=== PATIENT | male | born 1965 | race Two or more races ===

== ENCOUNTER 2019-03-17 07:44 | Inpatient (IN) | payer OTHER ==
[~2019-03-17] VITALS: Ht 193 cm; Wt 99.8 kg
[2019-03-17] MEDS ORDERED: ONDANSETRON HCL/PF 4 MG/2 ML VIAL IV ONE (08:00)
[2019-03-17] MEDS ORDERED: IV NS 0.9% 1,000 ML BAG IV ONE ×2 (08:00→10:00)
--- NOTE | 2019-03-17 08:00 | NUR ---
MARCELA, FROM HOME, FOUND OUTSIDE HIS HOUSE, PT ADMITS ON DRINKING LAST NIGHT AND THIS MORNING A BOTTLE OF LIQUOR, +SI/-HI W/ NO PLAN. KEPT COMFORTABLE, WILL CONTINUE TO MONITOR ACCORDINGLY. SITTER AT BEDSIDE FOR CONSTANT MONITORING.
[2019-03-17] MEDS ORDERED: ONDANSETRON HCL/PF 4 MG/2 ML VIAL ONE (08:06)
--- NOTE | 2019-03-17 08:12 | NUR ---
security at bedside and wanded the patient.
[2019-03-17 08:39] LABS: ALANINE AMINOTRANSFERASE 44 U/L (12-78); ALBUMIN 4.1 g/dL (3.4-5.0); ALCOHOL, BLOOD < 3 mg/dL (0-0); ALKALINE PHOSPHATASE 119 U/L (46-116); ASPARTATE AMINOTRANSFERASE 43 U/L (15-37); BILIRUBIN,DIRECT 0.1 mg/dL (0.0-0.2); BILIRUBIN,TOTAL 0.4 mg/dL (0.2-1.0); CALCIUM, SERUM 9.8 mg/dL (8.5-10.1); CARBON DIOXIDE 19 mmol/L (21-32); CHLORIDE 103 mmol/L (98-107); CREATININE 1.3 mg/dL (0.6-1.3); GLUCOSE 160 mg/dL (74-106); POTASSIUM 3.6 mmol/L (3.5-5.1); SODIUM SERUM 143 mmol/L (136-145); TOTAL PROTEIN, SERUM 8.4 g/dL (6.4-8.2); UREA NITROGEN, BLOOD 10 mg/dL (7-18)
[2019-03-17 08:41] LABS: SALICYLATE 1.8 mg/dL (2.8-20.0)
[2019-03-17 08:52] LABS: BASOPHILS % (AUTO) 0.1 % (0.0-2.0); HEMATOCRIT 45 % (39-51); LYMPHOCYTES # (AUTO) 1.1 /CMM (0.8-4.8); LYMPHOCYTES % (AUTO) 7.1 % (20.0-44.0); MEAN CORPUSCULAR HGB CONC 34 g/dl (31.0-36.0); MEAN CORPUSCULAR VOLUME 88 fL (80-96); MONOCYTES # (AUTO) 0.7 /CMM (0.1-1.30); MONOCYTES % (AUTO) 4.1 % (2.0-12.0); NEUTROPHILS # (AUTO) 14.3 /CMM (1.8-8.9); NEUTROPHILS % (AUTO) 88.7 % (43.0-81.0); PLATELET COUNT (AUTO) 412 /CMM (150-450); RED BLOOD CELL COUNT(AUTO) 5.12 MIL/uL (4.5-6.0); WHITE BLOOD COUNT (AUTO) 16.2 K/uL (4.3-11.0)
--- NOTE | 2019-03-17 09:03 | NUR ---
urine collected and sent to lab
[2019-03-17 09:04] LABS: ACETAMINOPHEN 0 ug/ml (10-30)
[2019-03-17 09:12] LABS: APPEARANCE,URINE Clear (CLEAR); BILIRUBIN,URINE Negative (NEGATIVE); BLOOD, URINE Moderate Ery/uL (NEGATIVE); COLOR,URINE Yellow (YELLOW); KETONES,URINE Trace (NEGATIVE); LEUKOCYTE ESTERASE ,URINE Small (NEGATIVE); NITRITE, URINE Negative (NEGATIVE); PROTEIN,URINE 100 mg/dl (NEGATIVE); UGLUCOSE 500 MG/DL mg/dL (NEGATIVE); UROBILINOGEN,URINE 0.2 EU/dL (0.2)
[2019-03-17 09:14] LABS: BACTERIA,URINE None seen /HPF (None Seen); SQUAMOUS EPITHELIAL CELL,UR Few /HPF (None Seen)
--- NOTE | 2019-03-17 11:42 | NUR ---
lapd at bedside and talking to the patient. Per [employer] ex-bf is coming to pick him up.
--- NOTE | 2019-03-17 12:19 | NUR ---
lapd: Yevgeniy [id number] [phone]
--- NOTE | 2019-03-17 12:21 | NUR ---
CALLED DISCHARGE COORDINATOR PAWN BROKER.
[2019-03-17] MEDS ORDERED: LORAZEPAM INJ 2 MG/ML VIAL IM ONE (12:30)
--- NOTE | 2019-03-17 12:42 | NUR ---
tammy APPLIED PSYCHOLOGY CHAIR on site for eval
[2019-03-17] MEDS ORDERED: LORAZEPAM INJ 2 MG/ML VIAL ONE (12:57)
--- NOTE | 2019-03-17 14:12 | NUR ---
NURSING SUP GAVE GPS BED 215A.
[2019-03-17] MEDS ORDERED: LORA-258 PO (14:42)
[2019-03-17] MEDS ORDERED: AMLO5TAB4 PO (14:42)
[2019-03-17] MEDS ORDERED: ARIP5TAB59 PO (14:42)
[2019-03-17] MEDS ORDERED: HYDR-4385 PO (14:42)
[2019-03-17] MEDS ORDERED: LISI1TAB28 PO (14:42)
[2019-03-17] MEDS ORDERED: ABAC1TAB15 PO (14:42)
[2019-03-17] MEDS ORDERED: SIMV-46 PO (14:42)
[2019-03-17] MEDS ORDERED: IBUP-1957 PO (14:42)
[2019-03-17] MEDS ORDERED: LAMO150T6 PO (14:42)
[2019-03-17] MEDS ORDERED: DULO60CA45 PO (14:42)
[2019-03-17] MEDS ORDERED: METH36TA PO (14:42)
--- NOTE | 2019-03-17 15:10 | NUR ---
REPORT GIVEN TO SHAVON NAVAS FOR ITA.
--- NOTE | 2019-03-17 15:45 | NUR ---
NURSING ADMISSION NOTE: PT WAS ADMITTED TODAY AT 1545 FROM [facility] ER ON 5150 HOLD FOR DTS. PER HOLD, "RADIOCALL TO ARASH'S APARTMENT FOR WELFARE CHECK. SPOKE TO ARASH WHO STATED HE HAS BEEN SUFFERING FROM DEPRESSION AND LIFE ISSUES. HE HAS THOUGHTS OF HURTING HIMSELF AND TOLD EX-PARTNER (CRISTAL TREJO) THAT HE HOPED THE GLASS [place] WOULD BREAK AND HE WOULD FALL." PT WAS BROUGHT TO THE UNIT VIA GURNEY FROM ER. PT IS A&OX4, CALM, COOPERATIVE, PLEASANT, FLAT, SAD AFFECT, DEPRESSED MOOD, DENIES SI/HI/AVH AT THIS TIME. PT STATES "I'VE BEEN DEP Addendum: 03/17/19 at 1909 by ANKIT PARK RN DEPRESSED FOR A WHILE NOW AND HAVE BEEN HAVING SUICIDAL THOUGHTS BUT I DID NOT HAVE A PLAN." ADMISSION ORDERS WERE GIVEN BY DR. MERRILL AND DR. WOOD HAS BEEN NOTIFIED OF ADMISSION WELL. MED RECON HAS BEEN DONE BY DR. WOOD. PT WAS COOPERATIVE WITH ADMISSION PROCESS AND HAS SIGNED ALL PAPERWORK. SKIN INTACT. VS: 163/111, 107, 20, 96%RA, 98.7, 0/10 PAIN. ALL NEEDS ATTENDED AND ANTICIPATED. WILL CONTINUE TO MONITOR Q15 MINS FOR SAFETY AND BEHAVIOR.
--- NOTE | 2019-03-17 15:56 | NUR ---
wheeled patient via gurney accompanied by EMT in no distress.
[2019-03-17] MEDS ORDERED: Medication Not On Formulary EA (Lamotrigine 150 MG) PO SCH (17:00)
[2019-03-17] MEDS ORDERED: ACETAMINOPHEN 325 MG TABLET PO PRN (17:30)
[2019-03-17] MEDS ORDERED: MAG HYDROX/AL HYDROX/SIMETH 30 ML UDC PO PRN (17:30)
[2019-03-17] MEDS ORDERED: HYDROCODONE/APAP 5/325MG 1 EACH TABLET PO PRN (17:30)
[2019-03-17] MEDS ORDERED: BLOOD SUGAR DIAGNOSTIC 1 EACH STRIP IN ONE (17:30)
[2019-03-17] MEDS ORDERED: LORAZEPAM 0.5 MG TABLET PO PRN (17:30)
[2019-03-17] MEDS ORDERED: IBUPROFEN 400 MG TABLET PO PRN (17:30)
[2019-03-17] MEDS ORDERED: MAGNESIUM HYDROXIDE 30 ML UDC PO PRN (17:30)
[2019-03-17 20:58] VITALS: BP 160/108
[2019-03-17] MEDS: TRAZODONE 50 MG TABLET PO SCH (21:32)
[2019-03-17] MEDS: SULFAMETH/TRIMETH 800/160 MG 1 UDTAB TABLET PO SCH (21:32)
[2019-03-17] MEDS: TEMAZEPAM 7.5 MG CAPSULE PO PRN (21:33)
[2019-03-18 07:39] LABS: BASOPHILS % (AUTO) 0.1 % (0.0-2.0); EOSINOPHILS % (AUTO) 0.8 % (0.0-6.0); HEMATOCRIT 36 % (39-51); HEMOGLOBIN 12.2 g/dL (13.5-17.5); LYMPHOCYTES # (AUTO) 2.6 /CMM (0.8-4.8); LYMPHOCYTES % (AUTO) 31.5 % (20.0-44.0); MEAN CORPUSCULAR HGB CONC 34 g/dl (31.0-36.0); MEAN CORPUSCULAR VOLUME 87 fL (80-96); MONOCYTES # (AUTO) 0.6 /CMM (0.1-1.30); MONOCYTES % (AUTO) 7.9 % (2.0-12.0); NEUTROPHILS # (AUTO) 4.9 /CMM (1.8-8.9); NEUTROPHILS % (AUTO) 59.7 % (43.0-81.0); PLATELET COUNT (AUTO) 299 /CMM (150-450); RED BLOOD CELL COUNT(AUTO) 4.17 MIL/uL (4.5-6.0); WHITE BLOOD COUNT (AUTO) 8.1 K/uL (4.3-11.0)
[2019-03-18 07:40] LABS: ALBUMIN 3.2 g/dL (3.4-5.0); BILIRUBIN,TOTAL 0.4 mg/dL (0.2-1.0); CALCIUM, SERUM 8.7 mg/dL (8.5-10.1); PHOSPHORUS 3.3 mg/dL (2.5-4.9); POTASSIUM 3.2 mmol/L (3.5-5.1); TOTAL PROTEIN, SERUM 6.6 g/dL (6.4-8.2)
[2019-03-18 08:00] VITALS: BP 127/73
[2019-03-18] MEDS: THIAMINE HCL 100 MG TABLET PO SCH (08:47)
[2019-03-18] MEDS: FOLIC ACID 1 MG TABLET PO SCH (08:47)
[2019-03-18] MEDS: LISINOPRIL (20MG) 20 MG TABLET PO SCH (08:47)
[2019-03-18] MEDS: HYDROCHLOROTHIAZIDE 25 MG TABLET PO SCH (08:47)
[2019-03-18] MEDS: LITHIUM CARBONATE (300 MG CAP) 300 MG CAPSULE PO SCH ×3 (08:47→16:38)
[2019-03-18] MEDS: SIMVASTATIN 20 MG TABLET PO SCH (08:48)
[2019-03-18] MEDS: SULFAMETH/TRIMETH 800/160 MG 1 UDTAB TABLET PO SCH ×2 (08:48→21:42)
[2019-03-18] MEDS: AMLODIPINE BESYLATE 5 MG TABLET PO SCH (08:48)
[2019-03-18] MEDS ORDERED: Medication Not On Formulary EA (Duloxetine Hcl (Cymbalta) 60 MG) PO SCH (09:00)
[2019-03-18] MEDS ORDERED: TRIUMEQ PO SCH (09:00)
[2019-03-18] MEDS ORDERED: METHYLPHENIDATE HCL 36 MG PO SCH (09:00)
[2019-03-18] MEDS: CHLORDIAZEPOXIDE HCL 5 MG CAPSULE PO SCH ×3 (09:40→16:38)
[2019-03-18] MEDS ORDERED: POTASSIUM CHLORIDE 20 MEQ TAB.PRT.SR PO SCH (10:00)
[2019-03-18] MEDS ORDERED: POTASSIUM CHLORIDE 20 MEQ TAB.PRT.SR PO ONE (10:30)
--- NOTE | 2019-03-18 13:13 | NUR ---
DR WOOD MADE AWARE OF THE PATIENT'S MOST RECENT LAB VALUES.
--- NOTE | 2019-03-18 14:22 | NUR ---
INITIAL DISCHARGE PLAN: Patient wishes to return home [address] [facility] [address].Paty W will help form a safe and proper discharge in collaboration with .
--- NOTE | 2019-03-18 14:24 | NUR ---
UR NOTE: AUTH FOR 6DAYS, With review due 03/23, AUTH #:[id number]. OBTAINED FROM [facility] NUTRITIONIST [phone].
--- NOTE | 2019-03-18 15:01 | NUR ---
FAMILY CONTACT: TERESA contacted pts Pete [phone] and left a voicemail for callback.
[2019-03-18 16:00] VITALS: BP 107/68
--- NOTE | 2019-03-18 19:08 | NUR ---
RN NOTE: PATIENT C/O HEARTBURN. PRN MAALOX GIVEN
--- NOTE | 2019-03-18 19:30 | NUR ---
GPS RN NOTES RECEIVED LAYING COMFORTABLY ON BED,A/O X4,ABLE TO MAKE NEEDS KNOWN,AMBULATE WITH ASSIST.DENIES SUICIDAL IDEATION,MED COMPLIANT.WILL CONTINUE TO MONITOR BEHAVIOR AND MANAGE ACCORDINGLY.
[2019-03-18 20:00] VITALS: BP 106/58
[2019-03-18] MEDS: TRIUMEQ PO SCH (20:58)
[2019-03-18 21:37] VITALS: BP 106/58
[2019-03-18] MEDS: TRAZODONE 50 MG TABLET PO SCH (21:42)
[2019-03-19 08:00] VITALS: BP 116/79
[2019-03-19] MEDS: LITHIUM CARBONATE (300 MG CAP) 300 MG CAPSULE PO SCH ×3 (09:00→17:03)
[2019-03-19] MEDS ORDERED: TRIUMEQ PO SCH ×2 (09:00→22:00)
[2019-03-19] MEDS: TRIUMEQ PO SCH (09:00)
[2019-03-19] MEDS: SULFAMETH/TRIMETH 800/160 MG 1 UDTAB TABLET PO SCH ×2 (09:01→21:09)
[2019-03-19] MEDS: THIAMINE HCL 100 MG TABLET PO SCH (09:01)
[2019-03-19] MEDS: SIMVASTATIN 20 MG TABLET PO SCH (09:01)
[2019-03-19] MEDS: FOLIC ACID 1 MG TABLET PO SCH (09:01)
[2019-03-19] MEDS: CHLORDIAZEPOXIDE HCL 5 MG CAPSULE PO SCH ×3 (09:01→17:03)
[2019-03-19] MEDS: AMLODIPINE BESYLATE 5 MG TABLET PO SCH (09:02)
[2019-03-19] MEDS: LISINOPRIL (20MG) 20 MG TABLET PO SCH (09:02)
[2019-03-19] MEDS: HYDROCHLOROTHIAZIDE 25 MG TABLET PO SCH (09:02)
[2019-03-19 16:00] VITALS: BP 129/70
[2019-03-19 20:37] VITALS: BP 150/86
[2019-03-19] MEDS: TRAZODONE 50 MG TABLET PO SCH (21:10)
[2019-03-20] MEDS: TEMAZEPAM 7.5 MG CAPSULE PO PRN (00:04)
[2019-03-20 08:00] VITALS: BP 109/72
[2019-03-20] MEDS: AMLODIPINE BESYLATE 5 MG TABLET PO SCH (09:03)
[2019-03-20] MEDS: SULFAMETH/TRIMETH 800/160 MG 1 UDTAB TABLET PO SCH (09:03)
[2019-03-20] MEDS: CHLORDIAZEPOXIDE HCL 5 MG CAPSULE PO SCH (09:03)
[2019-03-20 09:04] VITALS: BP 109/72
[2019-03-20] MEDS: HYDROCHLOROTHIAZIDE 25 MG TABLET PO SCH (09:04)
[2019-03-20] MEDS: LITHIUM CARBONATE (300 MG CAP) 300 MG CAPSULE PO SCH (09:04)
[2019-03-20] MEDS: SIMVASTATIN 20 MG TABLET PO SCH (09:04)
[2019-03-20] MEDS: FOLIC ACID 1 MG TABLET PO SCH (09:04)
[2019-03-20] MEDS: THIAMINE HCL 100 MG TABLET PO SCH (09:04)
[2019-03-20] MEDS: LISINOPRIL (20MG) 20 MG TABLET PO SCH (09:04)
--- NOTE | 2019-03-20 11:31 | NUR ---
53 year old male discharged to 's home in stable condition. Compliant with medications, cooperative with treatment plans. Patient denies SI/HI and VAH. Patient instructed to go to the closest ER if developing SI/HI. Behavior improved, less depressed, psychiatric treatment plans met. Medical treatment plans deferred for continual monitoring. Patient educated on after care and copy provided. All personal belongings returned and belongings list signed. Medications reconciled with Dr. Storm and Dr. Mercado. Prescriptions given to patient. Patient signed discharge paperwork. Skin checked and intact on discharge. Patient left unit at 1120 via private car accompanied by , Preston.
--- NOTE | 2019-04-01 13:54 | NUR ---
15 DAY SUBSTANCE ABUSE FOLLOW UP: Unable to follow up due to contact number no longer valid.
== END 2019-03-20 11:20 | disposition home or self-care (01) | DRG 885 ==
LOC: ER 07:44 → GPS 14:32
PROVIDERS: ADMIT Psychiatry & Neurology Psychiatry; ATTEND Internal Medicine
DX: F31.9 Bipolar disorder, unspecified (principal); R45.851 Suicidal ideations; N39.0 Urinary tract infection, site not specified; J98.11 Atelectasis; F15.90 Other stimulant use, unspecified, uncomplicated; E78.5 Hyperlipidemia, unspecified; F41.9 Anxiety disorder, unspecified; I10 Essential (primary) hypertension; F10.10 Alcohol abuse, uncomplicated; F98.8 Other specified behavioral and emotional disorders with onset usually occurring in childhood and adolescence; Z87.891 Personal history of nicotine dependence
CPT/HCPCS: 36415; 70450-TC; 71045-TC; 80048-TC; 80053-TC; 80061-TC; 80076-TC; 80305; 81000-TC; 82962-TC; 83735-TC; 84100-TC; 84484-TC; 85025-TC; 85730-TC; 87081-TC; G0480; J2060; J2405; J7030

== ENCOUNTER 2019-09-02 15:55 | Inpatient (IN) | payer OTHER ==
[~2019-09-02] VITALS: Ht 193 cm; Wt 94.3 kg
[~2019-09-02 15:55] MED LIST: ABAC1TAB15 PO; AMLO5TAB4 PO; ARIP5TAB59 PO; DULO60CA45 PO; HYDR-4385 PO; IBUP-1957 PO; LAMO150T6 PO; LISI1TAB28 PO; LORA-258 PO; METH36TA PO; SIMV-46 PO
--- NOTE | 2019-09-02 15:58 | NUR ---
PT MALIKA FROM HOME TO ER BED 14. PER EMS REPORT, FAMILY CALLED 911 CONCERNED ABOUT PATIENT POSSIBLE OVERDOSING ON HIS PSYCH MEDS. PT PLACED ON MONITOR. VSS. SITTER AT BEDSIDE. AWAITING MD CURRAN.
--- NOTE | 2019-09-02 16:24 | NUR ---
DR CALIX AT BEDSIDE FOR EVAL.
--- NOTE | 2019-09-02 16:42 | NUR ---
CYTOPATHOLOGIST AT BEDSIDE FOR BLOOD DRAW.
[2019-09-02 16:47] LABS: BASOPHILS % (AUTO) 0.2 % (0.0-2.0); EOSINOPHILS % (AUTO) 0.6 % (0.0-6.0); HEMATOCRIT 44 % (39-51); LYMPHOCYTES # (AUTO) 1.6 /CMM (0.8-4.8); LYMPHOCYTES % (AUTO) 16.6 % (20.0-44.0); MEAN CORPUSCULAR HGB CONC 34 g/dl (31.0-36.0); MEAN CORPUSCULAR VOLUME 90 fL (80-96); MONOCYTES # (AUTO) 0.5 /CMM (0.1-1.30); NEUTROPHILS # (AUTO) 7.5 /CMM (1.8-8.9); NEUTROPHILS % (AUTO) 77.6 % (43.0-81.0); PLATELET COUNT (AUTO) 351 /CMM (150-450); RED BLOOD CELL COUNT(AUTO) 4.92 MIL/uL (4.5-6.0); WHITE BLOOD COUNT (AUTO) 9.7 K/uL (4.3-11.0)
[2019-09-02 16:55] LABS: CALCIUM, SERUM 9.3 mg/dL (8.5-10.1); CARBON DIOXIDE 19 mmol/L (21-32); CHLORIDE 103 mmol/L (98-107); CREATININE 1.1 mg/dL (0.6-1.3); GLUCOSE 184 mg/dL (74-106); POTASSIUM 3.3 mmol/L (3.5-5.1); SODIUM SERUM 139 mmol/L (136-145); UREA NITROGEN, BLOOD 8 mg/dL (7-18)
[2019-09-02 17:08] LABS: ALANINE AMINOTRANSFERASE 27 U/L (12-78); ALKALINE PHOSPHATASE 107 U/L (46-116); ASPARTATE AMINOTRANSFERASE 21 U/L (15-37); BILIRUBIN,DIRECT 0.1 mg/dL (0.0-0.2); BILIRUBIN,TOTAL 0.3 mg/dL (0.2-1.0)
[2019-09-02 17:14] LABS: SALICYLATE 1.4 mg/dL (2.8-20.0)
[2019-09-02 17:15] LABS: ACETAMINOPHEN 0 ug/ml (10-30); ALCOHOL, BLOOD < 3 mg/dL (0-0)
[2019-09-02] MEDS ORDERED: POTASSIUM CHLORIDE 20 MEQ TAB.PRT.SR PO ONE ×2 (18:30→18:38)
--- NOTE | 2019-09-02 19:09 | NUR ---
RECEIVED REPORT FROM AM SHIFT RN JANICE. PT ASLEEP, NO ACUTE DISTRESS NOTED, RESP EVEN AND UNLABORED. CALL LIGHT WITHIN REACH. WILL CONTINUE TO MONITOR PT CLOSELY. 1:1 SITTER REMAINS AT BEDSIDE.
[2019-09-02 19:19] LABS: APPEARANCE,URINE Clear (CLEAR); BILIRUBIN,URINE Negative (NEGATIVE); BLOOD, URINE Negative Ery/uL (NEGATIVE); COLOR,URINE Yellow (YELLOW); KETONES,URINE Negative (NEGATIVE); LEUKOCYTE ESTERASE ,URINE Small (NEGATIVE); NITRITE, URINE Negative (NEGATIVE); PH,URINE 5.5 (5.0-8.0); PROTEIN,URINE 30 mg/dl (NEGATIVE); UGLUCOSE Negative (NEGATIVE); UROBILINOGEN,URINE 0.2 EU/dL (0.2)
[2019-09-02 19:29] LABS: BACTERIA,URINE Few /HPF (None Seen); RBC,URINE 0-2 /HPF (0-2); SQUAMOUS EPITHELIAL CELL,UR Few /HPF (None Seen)
--- NOTE | 2019-09-02 22:59 | NUR ---
PER DR CALIX PT MED CLEARED TO BE SEEN BY CRISIS CLIN
--- NOTE | 2019-09-02 23:58 | NUR ---
called psych clinician tammy serrano, 1 hour eta
--- NOTE | 2019-09-03 00:46 | NUR ---
BASIA HALE SAMPLE BOX MAKER AT BEDSIDE TO BINA PT. PT CALM AND COOPERATIVE AT THIS TIME.
--- NOTE | 2019-09-03 01:00 | NUR ---
BASIA HALE LCSW PLACED PT ON 5150 HOLD.
--- NOTE | 2019-09-03 02:35 | NUR ---
PT ASLEEP, NO ACUTE DISTRESS NOTED, RESP EVEN AND UNLABORED. CALL LIGHT WITHIN REACH. WILL CONTINUE TO MONITOR PT CLOSELY. 1:1 SITTER REMAINS AT BEDSIDE.
--- NOTE | 2019-09-03 04:06 | NUR ---
PT REQUESTING TO SPEAK TO ER MDAND REQUESTING PSYCH MEDS. ER MD SPOKE TO PT NO ORDERS RECEIVED.
--- NOTE | 2019-09-03 04:21 | NUR ---
PT RESTING COMFORTABLY IN BED. VSS. NO ACUTE DISTRESS NOTED. SITTER AT BEDSIDE FOR SAFETY
--- NOTE | 2019-09-03 06:11 | NUR ---
PT ASLEEP, NO ACUTE DISTRESS NOTED, RESP EVEN AND UNLABORED. CALL LIGHT WITHIN REACH. WILL CONTINUE TO MONITOR PT CLOSELY. 1:1 SITTER REMAINS AT BEDSIDE.
--- NOTE | 2019-09-03 07:21 | NUR ---
RECEIVED REPORT FROM SALMA NAVAS FOR ITA, PATIENT IN BED ASLEEP, EASILY AROUSABLE BY VOICE, HOOKED TO MONITOR, VSS, WILL CONTINUE TO MONITOR ACCORDINGLY.
--- NOTE | 2019-09-03 08:27 | NUR ---
ROOM GIVEN 215-A
--- NOTE | 2019-09-03 08:36 | NUR ---
REPORT GIVEN TO BRIELLE NAVAS OF GPS UNIT
--- NOTE | 2019-09-03 09:20 | NUR ---
GPS RN NOTE: ADMISSION 54 YEAR OLD MALE PATIENT ARRIVED ON UNIT AT 0915. PATIENT WAS ADMITTED FROM [facility] ER PREVIOUSLY FROM HOME. PATIENT WAS ADMITTED ON A 5150 FOR DANGER TO SELF. ACCORDING TO THE HOLD PATIENT'S FOUND PT UNCONSCIOUS AND HIS HOUSE A MESS WITH BROKEN DISHES AND GLASS EVERYWHERE. PATIENT TOOK 30-35 20MG CELEXA. UPON FACE TO FACE EVALUATION PATIENT ADMITS TO SUICIDE ATTEMPT WELL BECOMING ANGRY AND IMPULSIVE AND TRASHING THE HOUSE. PATIENT DENIED HAVING A PLAN AND STATED THE ATTEMPT WAS IMPULSIVE. PATIENT IS DEPRESSED WITH CONGRUENT AFFECT BUT DENIES SI AT THIS TIME. PATIENT'S RIGHTS HANDBOOK AND GUIDE TO PRESCRIPTIONS GIVEN. PATIENT SIGNED ALL ADMIT PAPERWORK. PATIENT DID NOT BRING ANY CONTRABAND WITH HIM. PATIENT SKIN IS INTACT. BREATHING IS EVEN AND UNLABORED WITH EQUAL RISE AND FALL OF CHEST. NO SIGNS OF DISTRESS NOTED AND PATIENT DENIES ANY PAIN. PATIENT IS AMBULATORY AND CONTINENT. SAFETY PRECAUTIONS IN PLACE: BED IN LOCKED AND LOW POSITION WITH 2 SIDE RAILS UP FOR SAFETY. BED ALARM ON. WILL CONTINUE TO MONITOR Q15 FOR MOOD, SAFETY AND BEHAVIOR
[2019-09-03] MEDS ORDERED: MAGNESIUM HYDROXIDE 30 ML UDC PO PRN (10:30)
[2019-09-03] MEDS ORDERED: BLOOD SUGAR DIAGNOSTIC 1 EACH STRIP IN ONE (10:30)
[2019-09-03] MEDS ORDERED: MAG HYDROX/AL HYDROX/SIMETH 30 ML UDC PO PRN (10:30)
[2019-09-03] MEDS ORDERED: ACETAMINOPHEN 325 MG TABLET PO PRN (10:30)
[2019-09-03] MEDS ORDERED: LamoTRIgine 100 MG TABLET PO SCH (13:00)
[2019-09-03 16:00] VITALS: BP 127/84
--- NOTE | 2019-09-03 16:04 | NUR ---
GPS RN NOTE: SHEFALI CONTACTED FATHER, ARASH. FATHER SAID EITHER HE OR RUDY () WILL DROP OFF MEDICATIONS THIS EVENING
[2019-09-03] MEDS: LORAZEPAM 0.5 MG TABLET PO PRN (18:18)
--- NOTE | 2019-09-03 18:18 | NUR ---
GPS RN NOTE: ANXIETY PATIENT APPROACHED NURSING STATION ASKING FOR "SOMETHING FOR ANXIETY". ATIVAN ADMINISTERED ORDERED. WILL CONTINUE TO MONITOR
[2019-09-03] MEDS: LAMIVUDI PO SCH (19:00)
[2019-09-03] MEDS: ABACAVIR PO SCH (19:00)
[2019-09-03] MEDS: DOLUTEGRAVIR PO SCH (19:00)
[2019-09-03 21:04] VITALS: BP 112/68
[2019-09-03] MEDS: TEMAZEPAM 7.5 MG CAPSULE PO PRN (22:33)
--- NOTE | 2019-09-03 22:33 | NUR ---
GPS-RN NOTE: INSOMNIA PATIENT C/O INABILITY TO SLEEP. ADMINISTERED RESTORIL 15MG PO ORDERED PER PT'S REQUEST. WILL CONTINUE TO MONITOR FOR PATIENT'S SAFETY.
[2019-09-04 06:45] LABS: CHOLESTEROL 198 mg/dL (<200); HDL CHOLESTEROL 59 mg/dL (40-60); LDL 131 mg/dL (0-99); TRIGLYCERIDES 87 mg/dL (30-150)
[2019-09-04 06:54] LABS: ALBUMIN 3.6 g/dL (3.4-5.0); BILIRUBIN,TOTAL 0.4 mg/dL (0.2-1.0); CALCIUM, SERUM 8.9 mg/dL (8.5-10.1); CREATININE 1.1 mg/dL (0.6-1.3); POTASSIUM 3.7 mmol/L (3.5-5.1); TOTAL PROTEIN, SERUM 7.4 g/dL (6.4-8.2)
[2019-09-04 08:00] VITALS: BP 131/97
[2019-09-04] MEDS: LamoTRIgine 100 MG TABLET PO SCH (08:52)
[2019-09-04] MEDS: SIMVASTATIN 20 MG TABLET PO SCH (08:53)
[2019-09-04] MEDS: DULOXETINE HCL 30 MG CAPSULE.DR PO SCH (08:53)
[2019-09-04] MEDS: HYDROCHLOROTHIAZIDE 25 MG TABLET PO SCH (08:54)
[2019-09-04] MEDS: AMLODIPINE BESYLATE 5 MG TABLET PO SCH (08:55)
[2019-09-04] MEDS: LISINOPRIL (20MG) 20 MG TABLET PO SCH (08:55)
[2019-09-04] MEDS ORDERED: METHYLPHENIDATE HCL 36 MG PO SCH (09:00)
[2019-09-04] MEDS ORDERED: ARIPIPRAZOLE 5 MG TABLET PO SCH (09:00)
[2019-09-04] MEDS ORDERED: DULOXETINE HCL 30 MG CAPSULE.DR PO SCH (09:00)
--- NOTE | 2019-09-04 10:25 | NUR ---
Substance Abuse Intervention: TERESA conducted a substance abuse intervention with the pt due to the pt overdosing on his prescription medications upon admission. Pt also has a history of drug and alcohol abuse.
--- NOTE | 2019-09-04 10:32 | NUR ---
CSSRS-Initial Intervention: SW conducted a suicide risk assessment with the pt due to his suicide attempt upon admission. Pt appeared to be minimizing and stated that he has not had ideation for months.
--- NOTE | 2019-09-04 10:35 | NUR ---
Family Contact: SW called the pts , Pete ([phone]), and left a voicemail message stating that the SW would like to discuss the pts treatment and discharge plan.
--- NOTE | 2019-09-04 10:43 | NUR ---
Initial Discharge Plan: Pt currently resides in his apartment alone located at [address] [place] [address]; ([phone]). Per pt, he would like to return to his home or go to a treatment center. SW will work with the pt and the MD regarding appropriate discharge planning. SW will form a safe and proper discharge.
--- NOTE | 2019-09-04 10:48 | NUR ---
[facility] Contact: SW called Jacob from [facility] ([phone]), and left a voicemail stating that the SW would like to refer a pt but the pt has questions about what treatment entails currently with COVID 19.
[2019-09-04] MEDS: DOLUTEGRAVIR PO SCH (12:18)
[2019-09-04] MEDS: LAMIVUDI PO SCH (12:18)
[2019-09-04] MEDS: ABACAVIR PO SCH (12:18)
--- NOTE | 2019-09-04 12:59 | NUR ---
Family Contact: Pts , Pete ([phone]), called the SW and stated that he is involved in the pts care but he stated that he is consulting with all of their family members so that he is not the sole person making decisions. SW stated that he will be the sole person of contact and he stated yes. It was discussed that the pt needs inpatient rehabilitation treatment and the SW stated that she would discuss this plan with the pt.
--- NOTE | 2019-09-04 15:32 | NUR ---
Individual Intervention with the pt: Pt stated that he wanted to be discharged to a treatment center in [place] because he has a friend (Mary [phone]) there that is supportive. He provided the SW with the name and number of a treatment center and asked the SW to follow up. Pt states that he is aware that he is in need of treatment and states, "Now is a perfect time. I have always made excuses not to seek treatment because I was working but now no one is working and I need to focus on my life."
--- NOTE | 2019-09-04 15:36 | NUR ---
Treatment Center Contact: TERESA called [facility] and spoke to Yoel ([phone]), instructional technology coordinator, and informed him that the pt is interested. TERESA provided him with the pts history and the current reason for hospitalization. TERESA then redirected the call to the pt so that an assessment can take place.
[2019-09-04 16:00] VITALS: BP 110/75
[2019-09-04 20:56] VITALS: BP 106/70
[2019-09-04] MEDS: TEMAZEPAM 7.5 MG CAPSULE PO PRN (21:54)
--- NOTE | 2019-09-04 21:54 | NUR ---
GPS RN NOTE: INSOMNIA PT. C/O UNABLE TO SLEEP AND REQUESTED SLEEPING PILL. ADMINISTERED RESTORIL 15 MG PO PRN ORDERED. WILL CONTINUE TO MONITOR FOR SAFETY AND BEHAVIOR
[2019-09-05 08:00] VITALS: BP 128/86
[2019-09-05] MEDS: SIMVASTATIN 20 MG TABLET PO SCH (08:22)
[2019-09-05] MEDS: DULOXETINE HCL 30 MG CAPSULE.DR PO SCH (08:22)
[2019-09-05] MEDS: LamoTRIgine 100 MG TABLET PO SCH (08:22)
[2019-09-05] MEDS: HYDROCHLOROTHIAZIDE 25 MG TABLET PO SCH (08:23)
[2019-09-05] MEDS: LISINOPRIL (20MG) 20 MG TABLET PO SCH (08:24)
[2019-09-05] MEDS: AMLODIPINE BESYLATE 5 MG TABLET PO SCH (08:28)
[2019-09-05] MEDS: LAMIVUDI PO SCH (08:32)
[2019-09-05] MEDS: ABACAVIR PO SCH (08:32)
[2019-09-05] MEDS: DOLUTEGRAVIR PO SCH (08:32)
--- NOTE | 2019-09-05 09:00 | NUR ---
RN NOTE- PT SLEEPING, EASILY AROUSED, COMPLIANT WITH RX, NEEDS ATTENDED, ISOLATIVE DENIES SI HI AH VH ENCOURAGING INTERACTION AND ADLS
[2019-09-05 16:00] VITALS: BP 100/61
[2019-09-05 20:00] VITALS: BP 116/72
[2019-09-05] MEDS: TEMAZEPAM 7.5 MG CAPSULE PO PRN (21:26)
--- NOTE | 2019-09-06 07:00 | NUR ---
RN OPENING NOTES RECEIVED PT IN BED AWAKE AT THIS TIME. AO X4. PT ABLE TO VERBALIZE NEEDS. NO SOB NOTED, SO S/S OF ANY ACUTE DISTRESS NOTED. PT DENIES SI HI AV VH. ENCOURAGING ADLS AND INTERACTION.
[2019-09-06 08:00] VITALS: BP 128/93
[2019-09-06] MEDS: SIMVASTATIN 20 MG TABLET PO SCH (08:20)
[2019-09-06] MEDS: AMLODIPINE BESYLATE 5 MG TABLET PO SCH (08:22)
[2019-09-06] MEDS: DULOXETINE HCL 30 MG CAPSULE.DR PO SCH (08:23)
[2019-09-06] MEDS: LISINOPRIL (20MG) 20 MG TABLET PO SCH (08:23)
[2019-09-06] MEDS: HYDROCHLOROTHIAZIDE 25 MG TABLET PO SCH (08:24)
[2019-09-06] MEDS: LamoTRIgine 100 MG TABLET PO SCH (08:24)
[2019-09-06] MEDS: LAMIVUDI PO SCH (08:27)
[2019-09-06] MEDS: DOLUTEGRAVIR PO SCH (08:27)
[2019-09-06] MEDS: ABACAVIR PO SCH (08:27)
[2019-09-06] MEDS: LORAZEPAM 0.5 MG TABLET PO PRN ×3 (09:00→19:44)
[2019-09-06 16:00] VITALS: BP 135/87
[2019-09-06] MEDS: ARIPIPRAZOLE 5 MG TABLET PO SCH (16:03)
[2019-09-06 21:20] VITALS: BP 142/77
[2019-09-06] MEDS: TEMAZEPAM 7.5 MG CAPSULE PO PRN (21:33)
[2019-09-07] MEDS: LORAZEPAM 0.5 MG TABLET PO PRN ×4 (02:11→23:27)
--- NOTE | 2019-09-07 07:26 | NUR ---
RN NOTE: PT C/O INCRASED ANXIETY. REQUESTING ATIVAN PRN. ATIVAN 1MG PO PRN ADMINISTERED.
[2019-09-07 08:00] VITALS: BP 127/88
[2019-09-07] MEDS: SIMVASTATIN 20 MG TABLET PO SCH (08:30)
[2019-09-07] MEDS: DULOXETINE HCL 30 MG CAPSULE.DR PO SCH (08:30)
[2019-09-07] MEDS: ARIPIPRAZOLE 5 MG TABLET PO SCH ×2 (08:31→16:15)
[2019-09-07] MEDS: LISINOPRIL (20MG) 20 MG TABLET PO SCH (08:31)
[2019-09-07] MEDS: HYDROCHLOROTHIAZIDE 25 MG TABLET PO SCH (08:31)
[2019-09-07] MEDS: AMLODIPINE BESYLATE 5 MG TABLET PO SCH (08:32)
[2019-09-07] MEDS: LamoTRIgine 100 MG TABLET PO SCH (08:32)
[2019-09-07] MEDS: LAMIVUDI PO SCH (08:35)
[2019-09-07] MEDS: DOLUTEGRAVIR PO SCH (08:35)
[2019-09-07] MEDS: ABACAVIR PO SCH (08:35)
--- NOTE | 2019-09-07 08:58 | NUR ---
UR NOTE: AUTH# [id number] APPROVED FOR 7 DAYS WITH REVIEW DUE ON 09/09/2019
--- NOTE | 2019-09-07 11:57 | NUR ---
RN NOTE: PT VISIBLY UPSET AND AGITATED. REQUESTING ATIVAN PRN. ATIVAN 1MG PO PRN ADMINISTERED.
--- NOTE | 2019-09-07 13:52 | NUR ---
FAMILY CONTACT: TERESA received a call from pts , Pete ([phone]), who requested updated information. SW informed him that pt is doing better and also informed him that MD started pt on Abilify on this present day. SW also informed him that pts insurance has authorized 7 days and a review is due on Saturday09/09/19. SW stated that if insurance determine pt is no longer meeting criteria for psychiatric hospitalization pt will be discharged on that present day. stated that he needed follow up appointments for pt and SW informed him that she should contact pts insurance to request follow up appointments before pts discharge. then informed SW that he was currently going through a custody gamez and needed SW to tell him if pt was fit to be a parent. TERESA explained that ethically and legally TERESA was unable to answer his question due to this being out of the TERESA's scop of practice. became upset and stated that SW was just trying to "cover her ass" and then hung up the phone. Addendum: 09/07/19 at 1449 by NAZ MOORE After reviewing pts chart, TERESA was made aware the pt has been 2 years from and shares 50/50 custody with pt. Per confidentiality purposes SW will no longer discuss pts treatment with pts . Pt has signed a non-disclosure agreement and stated that he does not want staff communicating with and providing him with information.
--- NOTE | 2019-09-07 14:30 | NUR ---
INDIVIDUAL MEETING: SW met with pt after called SW to seek information and asked about pts ability to be a fit parent. Pt states is using this psychiatric hospitalization as motive to get full custody over their son. Pt states his is manipulative and the main reason why he feels very depressed and has been extremely anxious. Pt requested to sign a non-disclosure of information. RN and SW were both present when pt signed.
--- NOTE | 2019-09-07 14:40 | NUR ---
Individual Counseling: This SW met with pt. at bedside to facilitate therapeutic milieu regarding support systems. However, the pt. was sleeping and not easily rousable by verbal cues. Patient will be invited to participate in future counseling session.
--- NOTE | 2019-09-07 14:52 | NUR ---
NON-DISCLOSURE OF INFORMATION: on this present day pt signed a non-disclosure of information. Pt states he no longer wants hospital staff communicating with as is using pts psychiatric hospitalization as motive to legally get full custody of pts son. is being manipulative and seeking information from staff regarding pts ability to be a fit parent.
[2019-09-07 16:00] VITALS: BP 121/83
[2019-09-07 20:23] VITALS: BP 130/76
[2019-09-07] MEDS: TEMAZEPAM 7.5 MG CAPSULE PO PRN (21:23)
--- NOTE | 2019-09-07 21:24 | NUR ---
GPS-RN NOTE: INSOMNIA PATIENT C/O INABILITY TO SLEEP. ADMINISTERED RESTORIL 15MG PO ORDERED PER PT'S REQUEST. WILL CONTINUE TO MONITOR FOR PATIENT'S SAFETY.
--- NOTE | 2019-09-07 23:28 | NUR ---
GPS-RN NOTE: ANXIETY PATIENT C/O FEELING ANXIOUS AND REQUESTING FOR ATIVAN. ADMINISTERED MEDICATION ORDERED. WILL CONTINUE TO MONITOR FOR PATIENT'S SAFETY.
[2019-09-08] MEDS: LORAZEPAM 0.5 MG TABLET PO PRN ×2 (03:46→08:23)
--- NOTE | 2019-09-08 03:47 | NUR ---
GPS-RN NOTE: ANXIETY PATIENT C/O FEELING ANXIOUS AND REQUESTING FOR ATIVAN. ADMINISTERED MEDICATION ORDERED. WILL CONTINUE TO MONITOR FOR PATIENT'S SAFETY.
[2019-09-08 08:00] VITALS: BP 145/89
[2019-09-08] MEDS: AMLODIPINE BESYLATE 5 MG TABLET PO SCH (08:24)
[2019-09-08] MEDS: ARIPIPRAZOLE 5 MG TABLET PO SCH (08:24)
[2019-09-08] MEDS: LamoTRIgine 100 MG TABLET PO SCH (08:25)
[2019-09-08] MEDS: SIMVASTATIN 20 MG TABLET PO SCH (08:25)
[2019-09-08] MEDS: DULOXETINE HCL 30 MG CAPSULE.DR PO SCH (08:25)
[2019-09-08] MEDS: HYDROCHLOROTHIAZIDE 25 MG TABLET PO SCH (08:26)
[2019-09-08 08:27] VITALS: BP 145/89
[2019-09-08] MEDS: LISINOPRIL (20MG) 20 MG TABLET PO SCH (08:27)
[2019-09-08] MEDS: LAMIVUDI PO SCH (08:51)
[2019-09-08] MEDS: ABACAVIR PO SCH (08:51)
[2019-09-08] MEDS: DOLUTEGRAVIR PO SCH (08:51)
--- NOTE | 2019-09-08 08:55 | NUR ---
GPS-RN NOTE: ANXIETY RECEIVED PT IN THE ROOM AMBULATORY SELF CARE , A/OX4 PT C/O FEELING ANXIOUS AND REQUESTING FOR ATIVAN. ATIVAN 1 MG PO Q4 HR GIVEN PER ORDER .PT DENIES FEELING DEPRESSED DENIES SI/HI AVH, CALM COOPERATIVE COMPLIANT WITH MEDICATIONS. WILL CONTINUE TO MONITOR FOR PATIENT'S SAFETY.
--- NOTE | 2019-09-08 10:52 | NUR ---
DISCHARGE NOTE: Pt will be discharged at 11:00am via private vehicle to [address] [facility] [id number], [place] [address]. Pts Father Serjio [phone] will be picking pt up. Pts mood is euthymic with congruent affect. Pt denied visual/auditory hallucinations and denied suicidal/homicidal ideation. Pt will follow up with Psychiatrist: Dr. Barb Solorio Address: [address], [place] [address] on Saturday09/11/19 at 10:00am. Pt will also follow up with [employer]: Dr. Nagi Matute Address: [address] [place] [address] , [place] [address] . Patient was provided referrals to address his substance and alcohol use. Patient was referred to the [address] [address] / and was encouraged to present at 9am on Saturday09/09/19. Additional resources included [facility] [address] [place] [address] and [facility] [address] [place] [address] .The multidisciplinary exit care form was done, printed, signed, and given to the patient.
--- NOTE | 2019-09-08 11:28 | NUR ---
CREDIT PROCESSOR NOTE: PATIENT IS A 54 Y/O DISCHARGED HOME TO [id number] [place] [address] [id number], [place] [address] PATIENT IS IN STABLE CONDITION. VSS. NO ACUTE DISTRESS NOTED. NO COMPLAINTS. COMPLIANT WITH MEDICATION MANAGEMENT. COOPERATIVE WITH PLAN OF CARE. PSYCHIATRIC TREATMENT PLANS MET. MEDICAL TREATMENT PLANS DEFERRED FOR CONTINUAL MONITORING. DENIES SI/HI VAH AT THE TIME OF DISCHARGE.PT A/O X4 SELF CARE, AMBULATORY DENIES FEELING DEPRESSED DENIES ANY S/S DISTRESS, SKIN CHECK DONE SKIN CLEAN AND INTACT . EDUCATED PATIENT ABOUT AFTERCARE WITH COPY PROVIDED. RETURNED PERSONAL BELONGINGS TO PATIENT. MEDICATIONS RECONCILED WITH ALONG WITH PSYCHIATRIC DISCHARGE ORDERS. DISCHARGE PAPERWORK SIGNED. FOR FOLLOW UP WITH PSYCHIATRIST AND SOLID WASTE [employer]FILL TECHNICIAN WITHIN 1 WEEK. PATIENT LEFT THE [facility] GPS VIA PRIVATE CAR PICKED UP BY FATHER JOANA.
== END 2019-09-08 11:20 | disposition home or self-care (01) | DRG 885 ==
LOC: ER 16:10 → GPS 09-03 08:51
PROVIDERS: ADMIT Psychiatry & Neurology Psychiatry; ATTEND Internal Medicine
DX: F31.30 Bipolar disorder, current episode depressed, mild or moderate severity, unspecified (principal); N39.0 Urinary tract infection, site not specified; R45.851 Suicidal ideations; I10 Essential (primary) hypertension; E87.6 Hypokalemia; F41.9 Anxiety disorder, unspecified; E78.5 Hyperlipidemia, unspecified; F10.10 Alcohol abuse, uncomplicated; F98.8 Other specified behavioral and emotional disorders with onset usually occurring in childhood and adolescence; F19.90 Other psychoactive substance use, unspecified, uncomplicated; Z87.891 Personal history of nicotine dependence
CPT/HCPCS: 36415; 80048-TC; 80053-TC; 80061-TC; 80076-TC; 80305; 81000-TC; 82962-TC; 85025-TC; 87081-TC; 87086-TC; G0480